=== PATIENT | female | born 2000 | race Caucasian/White ===

== ENCOUNTER → 2018-09-21 | Outpatient (CLI) | payer MEDICAID ==
--- NOTE | 2018-09-22 03:50 | REP ---
Clinical: Dating and viability. Technique: Transabdominal first trimester obstetrical ultrasound with color Doppler evaluation. Findings: Single live early intrauterine is appreciated. Gestational sac with yolk sac and pole identified. Pettibone-rump length of 17 mm corresponds to 8 weeks 1 day gestational age with estimated date of delivery 05/02/2019 . heart rate equals 161 beats per minute. No gross abnormalities are identified. Impression: Single live early intrauterine at 8 weeks 1 day gestational age. Complete anatomical assessment should be performed and 19-20 weeks. Electronically Signed by Rodri Ye MD 09/22/2018 03:42 A
== END ==
LOC: M RAD 10:44
DX: Z36.89 Encounter for other specified antenatal screening (principal); Z3A.08 8 weeks gestation of pregnancy